=== PATIENT | female | born 1975 | race Caucasian/White ===

== ENCOUNTER 2024-01-02 07:35 | Emergency (ER) | payer BC, SELFPAY ==
[2024-01-02 07:37] VITALS: BP 132/96
--- NOTE | 2024-01-02 08:38 | ED.GENMED ---
History of Present Illness
<KAVITHA Khan - Last Filed: 01/02/24 16:15>
General
Chief Complaint: Musculo-Skeletal Complaint
Source: patient
Exam Limitations: none
Time Seen by Provider: 01/02/24 08:20
Nursing documentation reviewed up to this point in time: agreed with
Travel History
Have you had any contact with someone who has COVID-19?: No
Do you have any symptoms of coronavirus? Fever > 100 degrees, chills, cough, shortness of breath, sore throat, loss of taste or smell, muscle aches, or headache?: No
History of Present Illness
History of Present Illness:
Patient is a 48-year-old female who presents to the ER for evaluation of right clavicle pain. Patient reports for the past several months she has had intense pain and discomfort in her proximal right clavicle region. She reports this is stopping
her from her activities and it is gotten worse over the past several weeks. She reports she feels short of breath because of the pain and it causes her to have to stop. It is worse with physical exertion. She has noticed a fullness in her
clavicle region. She denies any actual injury. She and her are anxious about possible breast cancer because of fullness of the clavicle. She has no history of breast cancer. No family history of breast cancer. She does not smoke.
She had a last mammogram which was normal last summer and is due for one this summer January or February.
Past History
<KAVITHA Khan - Last Filed: 01/02/24 16:15>
Past History
ED Past Medical History: None
ED Past Surgical History: None
Social History
Tobacco: Non-smoker
Alcohol: Occasional
Personal:
Living: with family
Employment: Employed (Teacher)
Review of Systems
<KAVITHA Khan - Last Filed: 01/02/24 16:15>
Review of Systems
Allergies reviewed?: Yes
All Other Systems: ROS reviewed and negative except as documented in HPI and ROS
Constitutional: Reports no symptoms; Denies fever, fatigue or chills
EENT: Reports no symptoms
Respiratory: Reports trouble breathing (trouble with breathing due to clavicle pain )
Cardiac: Reports no symptoms
ABD/GI: Reports no symptoms
Musculoskeletal: Reports other (Pain to proximal right clavicle for past several months.)
Skin: Reports no symptoms
Neurological: Reports no symptoms
Hematologic/Lymphatic: Reports no symptoms
Phy Exam
<KAVITHA Khan - Last Filed: 01/02/24 16:15>
General Physical Exam
General Presentation: no apparent distress
General age: appears stated age
General Skin: warm and dry
General Habitus: normal
General Mental: alert
General Hydration: appears well hydrated
Cardiovascular Exam
Cardiovascular Exam: regular rate/rhythm, no murmur and normal peripheral pulses
Pulmonary Exam
Pulmonary Exam: lungs clear, no respiratory distress and other (Breast exam done by myself with nurse Micaela at bedside no palpable masses to right or left breast )
Neurological Exam
Neurological Exam: alert and oriented x3
Musculoskeletal Exam
Musculoskeletal Exam: other (Patient has tenderness to the proximal right clavicle there is mild fullness above clavicle)
Skin Exam
Skin Exam: normal color and warm/dry
Psychiatric Exam
Psychiatric Exam: normal mood/affect
Course
<KAVITHA Khan - Last Filed: 01/02/24 16:15>
Orders/Labs/Results
Orders:
Orders
01/02/24 07:47
CR Chest - 2 Views Urgent
Comment:
Reason For Exam: clavical pain
01/02/24 08:54
Complete Blood Count/With Diff Urgent
Comprehensive Metabolic Panel Urgent
D-Dimer Urgent
01/02/24 10:00
Venous Doppler Lwr Ext Rt [US Periph Venous LOWER Ext RT] Urgent
Comment:
Reason For Exam: pain
01/02/24 10:25
CT Chest Pe Study Urgent
Comment:
Reason For Exam: sob right sided chest pain
01/02/24 12:05
Electrocardiogram (*1) Stat
Reason for Study: Other
Other Reason for Exam: chest pain
EKG- Treatment ONCE
Abnormal Lab Results
01/02/24
08:54
Chloride 114 H mmol/L
(98-107)
Carbon Dioxide 19 L mmol/L
(22-30)
ALT 53 H U/L
(0-35)
01/02/24 08:54
01/02/24 08:54
Vital Signs
Initial and Last Documented VS:
Initial Vital Signs
Temp Pulse Resp BP Pulse Ox
98.1 F 67 20 132/96 98
01/02/24 07:37 01/02/24 07:37 01/02/24 07:37 01/02/24 07:37 01/02/24 07:37
Last Documented Vital Signs
Temp Pulse Resp BP Pulse Ox
98.1 F 75 15 151/85 100
01/02/24 07:37 01/02/24 10:59 01/02/24 10:59 01/02/24 10:59 01/02/24 10:59
Store Associate consulted with Physician
Store Associate consulted with physician?: Yes
Name of Physician Consulted: Brennen
<Jai Hutton MD - Last Filed: 01/02/24 11:04>
Orders/Labs/Results
Orders:
Orders
01/02/24 07:47
CR Chest - 2 Views Urgent
Comment:
Reason For Exam: clavical pain
01/02/24 08:54
Complete Blood Count/With Diff Urgent
Comprehensive Metabolic Panel Urgent
D-Dimer Urgent
01/02/24 10:00
Venous Doppler Lwr Ext Rt [US Periph Venous LOWER Ext RT] Urgent
Comment:
Reason For Exam: pain
01/02/24 10:25
CT Chest Pe Study Urgent
Comment:
Reason For Exam: sob right sided chest pain
01/02/24 12:05
Electrocardiogram (*1) Stat
Reason for Study: Other
Other Reason for Exam: chest pain
EKG- Treatment ONCE
Abnormal Lab Results
01/02/24
08:54
Chloride 114 H mmol/L
(98-107)
Carbon Dioxide 19 L mmol/L
(22-30)
ALT 53 H U/L
(0-35)
01/02/24 08:54
01/02/24 08:54
Vital Signs
Initial and Last Documented VS:
Initial Vital Signs
Temp Pulse Resp BP Pulse Ox
98.1 F 67 20 132/96 98
01/02/24 07:37 01/02/24 07:37 01/02/24 07:37 01/02/24 07:37 01/02/24 07:37
Last Documented Vital Signs
Temp Pulse Resp BP Pulse Ox
98.1 F 75 15 151/85 100
01/02/24 07:37 01/02/24 10:59 01/02/24 10:59 01/02/24 10:59 01/02/24 10:59
<KAVITHA Khan - Last Filed: 01/02/24 16:15>
MDM/Problems Addressed
Differential Diagnosis Includes:
not limited to: joint pain , possible lymphadenopathy
MDM/Problems Addressed:
Patient is a 48-year-old female who presented to the ER complaining month-long of proximal clavicle pain. She reports because this pain she becomes short of breath. She noticed fullness above her clavicle and was concerned about this especially
possible breast cancer. She is no family history breast cancer she has no history breast cancer she does not smoke cholesterol mammogram was last year she is scheduled for mammogram in February. She has not been evaluated by a physician for this
fullness to the clavicle/pain. She denies any injury. She is in no acute distress. Given the fact that she complains of pain with this discomfort to the right chest clavicle area as reviewed with ED physician CAT scan was done and negative for
PE. CAT scan does however does show sclerotic lesions at levels of T7 and T9 possible bone island benign etiology versus osteoblastic metastasis and bone scan is recommended. On exam she has no obvious palpable masses to breasts. patient was eval
by ED physician she has an appointment with a new HOME BASED ASSISTANT, [facility] but this is not until I believe January I did recommend that she call and try to get a sooner appointment may need other imaging including earlier mammogram/breast
ultrasound. I also spoke with her about follow-up with her family doctor for possible bone scan to further evaluate abnormalities on 279. She was also given orthopedics for possible bony cause of her clavicle pain .
<KAVITHA Khan - Last Filed: 01/02/24 16:15>
*Radiology
Radiology exam reviewed: radiology read reviewed
*Pulse Oximetry
Patient hypoxic: no
*Critical Care Note
Total Time (30-74mins, 75-104mins- exclusive of procedures): Not Applicable
ED Attending Note
<KAVITHA Khan - Last Filed: 01/02/24 16:15>
-
Portions of this chart may have been created with voice recognition software.� Occasional wrong word or��sound alike� substitutions may have occurred due to the inherent limitations of voice recognition software.
<Jai Hutton MD - Last Filed: 01/02/24 11:04>
ED Attending Note
Patient seen and examined by attending physician: Yes
I performed the substantive portion of visit, reviewed & personally made and approve the management plan that is documented in note by myself or FABIO.: Yes
ED Attending Note:
48-year-old female complaining of pain at the right clavicle for months. Also has noted some shortness of breath with this usually felt secondary to pain. No anterior chest pain or pleuritic pain no fever. Symptoms are progressing. She cannot
lie on that side. Patient is healthy exercises no significant cardiac risk factors
On exam patient is nontoxic in no distress. Abdomen nontender no chest wall tenderness. Regular rate and rhythm. She does have mild swelling to the right clavicle medially at the sternoclavicular joint. There is tenderness at this location. She
has no leg pain or leg swelling.
Workup for etiology of local swelling. Workup for shortness of breath. Likely secondary to pain.
Discharge Plan
Departure
Patient Disposition: Home (Routine Discharge)
Date of Disposition: 01/02/24
Time of Disposition: 12:52
Patient with high blood pressure during this ER visit?: Yes
Condition: Fair
Covid-19: Not Applicable
Discharge Problem:
Clavicle pain
Prescriptions:
No Action
topiramate [Trokendi XR] 100 MG capsule,extended release 24hr
100 mg PO DAILY
prednisone 20 MG tablet
20 mg PO DAILY Qty: 5 0RF
albuterol sulfate 1 PUFF HFA aerosol inhaler
2 puff inhalation R Q4HPRN PRN (Reason: Cough, SOB) Qty: 1 0RF
promethazine-codeine 5 ML syrup
5 ml PO Q4HPRN PRN (Reason: Cough) Qty: 120 0RF
Rx Instructions:
May take one to two tsp
Referrals:
Rosa Rodrigez DO [Active] -
Doug Galarza MD [Active] -
Salud Mistry DO [Family Provider] -
Activity Restrictions/Additional Instructions:
As discussed, Call [facility] for an earlier appointment and evaluation of your symptoms as soon as possible. You may possibly need additional imaging including breast ultrasound and earlier mammogram then previously
scheduled
In addition call your family doctor for evaluation of lesions of your thoracic spine on T7 and T9. It is recommended that you do a follow-up bone scan
In addition follow-up with orthopedics for further evaluation of your clavicle pain.
Return if any worsening of symptoms. In the meantime you may try ibuprofen for discomfort every 8 hours.
Interventions
Interventions:
*Risk Screen - Suicide Last Done: 01/02/24 07:37
*General Assessment Last Done: 01/02/24 07:37
*Neglect/Abuse Screening Last Done: 01/02/24 07:37
*Nursing Disposition Last Done: 01/02/24 13:15
ED- Cardiac Assessment Last Done: 01/02/24 09:40
ED-Musculoskeletal Assessment Last Done: 01/02/24 11:00
ED- Pulmonary Assessment Last Done: 01/02/24 09:44
Discharge Date and Time
Discharge Date/Time: 01/02/24 13:15
Print Language: MALAY
[2024-01-02 09:07] LABS: % Basophils 0.6 % (0-2); % Eosinophils 2.9 % (0-6); % Immature Granulocytes 0.3 % (0-0.5); % Lymphocytes 28.3 % (20.5-51.1); % Monocytes 7.2 % (1.7-9.3); % Neutrophils 60.7 % (42.2-75.2); Absolute Eosinophils 0.2 10^3/uL (0-0.7); Absolute Lymphocytes 1.8 10^3/uL (1.2-3.4); Absolute Monocytes 0.5 10^3/uL (0.1-0.6); Absolute Neutrophils 3.8 10^3/uL (1.4-6.5); Hematocrit 38.4 % (37.0-47.0); Hemoglobin 13.2 g/dL (12.0-16.0); Mean Corp Hgb Conc. 34.4 g/dL (33.0-37.0); Mean Corpuscular Hgb 30.2 pg (27.0-31.0); Mean Corpuscular Volume 87.9 fL (81.0-99.0); Mean Platelet Volume 9.9 fL (7.4-10.4); Nucleated Red Blood Cells % 0 %; Platelet Count 218 10^3/uL (130-400); Red Blood Cell Count 4.37 10^6/uL (4.20-5.40); Red Cell Dist. Width 13.3 % (11.5-14.5); White Blood Cell Count 6.3 10^3/uL (4.8-10.8)
[2024-01-02 09:20] LABS: ALT (SGPT) 53 U/L (0-35); AST (SGOT) 32 U/L (14-36); Albumin 3.9 g/dl (3.5-5.0); Alkaline Phosphatase 72 U/L (38-126); Blood Urea Nitrogen 16 mg/dl (7-17); Calcium 9.5 mg/dl (8.4-10.2); Carbon Dioxide 19 mmol/L (22-30); Chloride 114 mmol/L (98-107); D-Dimer 0.37 ug/mlFEU (0.00-0.50); Glucose 89 mg/dl (70-99); Sodium 140 mmol/L (135-145); Total Bilirubin 0.5 mg/dl (0.2-1.3); Total Protein 6.7 g/dl (6.3-8.2); eGFR > 60.00
[2024-01-02 09:44] VITALS: BMI 23.5
[2024-01-02 10:59] VITALS: BP 151/85
== END 2024-01-02 13:15 | disposition home or self-care (01) ==
LOC: EMR 07:35
PROVIDERS: Nurse Practitioner; EMERGENCY PHYSICIAN Emergency Medicine; FAMILY PHYSICIAN Family Medicine
DX: M25.511 Pain in right shoulder (principal); R07.89 Other chest pain; M79.604 Pain in right leg
CPT/HCPCS: 99285; 71046; 71275; 80053; 85025; 85379; 93005; 93971; Q9967

== ENCOUNTER 2024-10-11 08:08 | Emergency (ER) | payer BC, SELFPAY ==
[2024-10-11 08:15] VITALS: BP 135/103
--- NOTE | 2024-10-11 08:25 | ED.GENMED ---
History of Present Illness
General
Chief Complaint: Abdominal Pain
Time Seen by Provider: 10/11/24 08:25
History of Present Illness
History of Present Illness:
TIME OF INITIAL ENCOUNTER: 8:30 AM
HPI: Over 48 hours ago, the patient developed a sensation where she felt that something was stuck in her esophagus. However she had not eaten for several hours prior. Since then she had some difficulty with getting food down and had only been
eating smoothies recently. She is concerned and convinced there is something stuck in her esophagus. However, she has been able to clear her secretions.
EXAM:
GENERAL: Well appearing in no distress
HEENT: Moist oral mucosa
CARDIOVASCULAR: No murmurs, normal heart rate, regular rhythm, No chest wall tenderness
PULMONARY: No respiratory distress, breath sounds are clear and equal
ABDOMEN: Soft with no peritoneal signs, no tenderness, the patient is clearing her secretions, I had the patient drink some sips of water and it seemed to go down without any difficulty
NEUROLOGIC: Excellent strength all extremities, no coordination deficits
PSYCHIATRIC: Appropriate mental status, normal insight and judgement
EXTREMITIES: Nontender, no edema, moves all extremities equally
SKIN: No rash, no lesions
NUMBER AND COMPLEXITY OF PROBLEMS ADDRESSED AT THE ENCOUNTER
� Chronic conditions affecting care: Migraines
� Acute Exacerbation and/or Progression of Chronic Illness: This is an acute problem
� Differential Diagnosis includes: Esophageal food bolus, esophagitis, GERD, esophageal rupture
AMOUNT AND/OR COMPLEXITY OF DATA TO BE REVIEWED AND ANALYZED
� I performed an independent evaluation of and my interpretation is:
EKG:
CT: CT imaging shows no acute abnormality�the patient was aware of the known abnormalities to the bones of the spine
X-rays:
Laboratory Studies: White count and hemoglobin are normal, chemistries relatively unremarkable, hCG negative
Other:
� Review of other/old records: I reviewed old records, no GI notes; she had a CTA less than 1 year ago which was negative for PE
� Clinical information was obtained by an independent historian: I spoke to at bedside
� Prescriptions/Medications Considered but not given:
� Further testing considered but not performed:
RISK OF COMPLICATIONS AND/OR MORBIDITY OR MORTALITY OF PATIENT MANAGEMENT
� Social determinants of health affecting care: Lives at home
� Discussion with other providers: I notified Dr. Tirado who recommends follow-up with her GI doctor at [facility]
� Escalation of care including admission/observation vs risk of discharge considered: is very concerned that she still has something stuck in her esophagus and strongly preferred CT imaging which I feel would be
reasonable. CT shows no sign of foreign body�she was aware of the bony abnormality. She was given 2 rounds of glucagon, Pepcid, Protonix, IV fluids and overall feels improved.
ANY OTHER UPDATES:
Prior to discharge, after meds given, she does feel improved and comfortable going home.
Past History
Past History
ED Past Medical History: None
ED Past Surgical History: None
Social History
Tobacco: Non-smoker
Alcohol: Occasional
Personal:
Living: with family
Employment: Employed (Teacher)
Phy Exam
Physical Exam
Physical Exam:
See HPI
Course
Orders/Labs/Results
Orders:
Orders
10/11/24 08:18
ECG [Electrocardiogram (*1)] Urgent
Reason for Study: Abdominal Pain
EKG- Treatment ONCE
10/11/24 08:33
0.9% Sodium Chloride 1000 ml [Nss] 1,000 ml IV BOLUS
Famotidine [Pepcid] 20 mg IV NOW STA
Glucagon [GlucaGen] 1 mg IV NOW STA
Ondansetron Injectable [Zofran] 4 mg IV NOW STA
Pantoprazole [Protonix IV] 40 mg IV NOW STA
Test Result ONCE
10/11/24 08:50
Complete Blood Count/With Diff Urgent
Comprehensive Metabolic Panel Urgent
HCG, Serum Qualitative Screen Urgent
Lipase Urgent
10/11/24 08:59
CT Chest With Iv Contrast Urgent
Comment:
Reason For Exam: concern for esophageal FB / pain
10/11/24 09:30
Glucagon [GlucaGen] 1 mg IV NOW STA
Abnormal Lab Results
10/11/24
08:50
Total Bilirubin 1.4 H mg/dl
(0.2-1.3)
ALT 58 H U/L
(0-35)
10/11/24 08:50
10/11/24 08:50
Vital Signs
Initial and Last Documented VS:
Initial Vital Signs
Temp Pulse Resp BP Pulse Ox
37.0 C 76 18 135/103 94
10/11/24 08:15 10/11/24 08:15 10/11/24 08:15 10/11/24 08:15 10/11/24 08:15
Last Documented Vital Signs
Temp Pulse Resp BP Pulse Ox
37.0 C 56 15 113/83 97
10/11/24 08:15 10/11/24 11:28 10/11/24 09:00 10/11/24 11:28 10/11/24 11:28
*Critical Care Note
Total Time (30-74mins, 75-104mins- exclusive of procedures): Not Applicable
ED Attending Note
-
Portions of this chart may have been created with voice recognition software.� Occasional wrong word or��sound alike� substitutions may have occurred due to the inherent limitations of voice recognition software.
Discharge Plan
Departure
Patient Disposition: Home (Routine Discharge)
Date of Disposition: 10/11/24
Time of Disposition: 10:18
Patient with high blood pressure during this ER visit?: Yes
Discharge Problem:
Esophagitis
Instructions: Acid Reflux and GERD in Adults (DC), Esophagitis
Prescriptions:
No Action
topiramate [Trokendi XR] 100 MG capsule,extended release 24hr
100 mg PO DAILY
prednisone 20 MG tablet
20 mg PO DAILY Qty: 5 0RF
albuterol sulfate 1 PUFF HFA aerosol inhaler
2 puff inhalation R Q4HPRN PRN (Reason: Cough, SOB) Qty: 1 0RF
promethazine-codeine 5 ML syrup
5 ml PO Q4HPRN PRN (Reason: Cough) Qty: 120 0RF
Rx Instructions:
May take one to two tsp
Referrals:
Pari Tirado MD [Active] - Follow up in 2-3 days
Salud Mistry DO [Family Provider] -
Activity Restrictions/Additional Instructions:
We gave you IV fluids, IV glucagon twice, IV Pepcid, and IV Protonix. Protonix is a medicine similar to omeprazole/Prilosec. I recommend taking [id number] omeprazole and you could also try [id number] Pepcid/famotidine for more
immediate relief this could be stomach acid related. CT imaging shows no acute abnormality including no clear sign of foreign body in the esophagus or stomach. The radiologist did note 'at least 4 sclerotic lesions of the vertebral bodies possibly
benign bone islands, these are stable, these involve C7, T7, T9, and T10. I notified our GI doctor, Dr. Tirado who recommends that you follow-up with your GI doctor at [facility].
Interventions
Interventions:
*Risk Screen - Suicide Last Done: 10/11/24 08:15
*General Assessment Last Done: 10/11/24 08:15
*Neglect/Abuse Screening Last Done: 10/11/24 08:15
*ED COVID-19 Vaccine History Last Done: 10/11/24 10:00
*Nursing Disposition Last Done: 10/11/24 11:28
GS-[facility]inik-Ouaubtjuix Assessment Last Done: 10/11/24 10:00
Discharge Date and Time
Discharge Date/Time: 10/11/24 11:30
Print Language: CONGOLESE
[2024-10-11 08:40] VITALS: BMI 26.5
[2024-10-11] MEDS: NSS 1000 IV (08:46)
[2024-10-11] MEDS: GlucaGen 1 MG IV ×2 (08:47→09:47)
[2024-10-11] MEDS: PROTONIX IV 40 MG IV (08:57)
[2024-10-11 09:00] VITALS: BP 124/88
[2024-10-11] MEDS: PEPCID 20 MG IV (09:02)
[2024-10-11] MEDS: ZOFRAN 4 MG IV (09:02)
[2024-10-11 09:03] LABS: % Basophils 0.5 % (0-2); % Eosinophils 2.4 % (0-6); % Immature Granulocytes 0.2 % (0-0.5); % Monocytes 9.1 % (1.7-9.3); % Neutrophils 50.8 % (42.2-75.2); Absolute Eosinophils 0.1 10^3/uL (0-0.7); Absolute Monocytes 0.5 10^3/uL (0.1-0.6); Absolute Neutrophils 2.8 10^3/uL (1.4-6.5); Hematocrit 43.9 % (37.0-47.0); Hemoglobin 14.9 g/dL (12.0-16.0); Mean Corp Hgb Conc. 33.9 g/dL (33.0-37.0); Mean Corpuscular Hgb 29.5 pg (27.0-31.0); Mean Corpuscular Volume 86.9 fL (81.0-99.0); Nucleated Red Blood Cells % 0 %; Platelet Count 249 10^3/uL (130-400); Red Blood Cell Count 5.05 10^6/uL (4.20-5.40); Red Cell Dist. Width 12.2 % (11.5-14.5); White Blood Cell Count 5.5 10^3/uL (4.8-10.8)
[2024-10-11 09:13] LABS: HCG, Serum Qualitative Screen Negative
[2024-10-11 09:17] LABS: ALT (SGPT) 58 U/L (0-35); AST (SGOT) 27 U/L (14-36); Albumin 4.4 g/dl (3.5-5.0); Alkaline Phosphatase 81 U/L (38-126); Blood Urea Nitrogen 17 mg/dl (7-17); Calcium 9.7 mg/dl (8.4-10.2); Carbon Dioxide 25 mmol/L (22-30); Chloride 105 mmol/L (98-107); Estimated Creatinine Clearance 82 ml/min; Glucose 86 mg/dl (70-99); Lipase 86 U/L (23-300); Potassium 4.3 mmol/L (3.5-5.1); Sodium 138 mmol/L (135-145); Total Bilirubin 1.4 mg/dl (0.2-1.3); Total Protein 7.1 g/dl (6.3-8.2); eGFR > 60.00
[2024-10-11 11:28] VITALS: BP 113/83
== END 2024-10-11 11:30 | disposition home or self-care (01) ==
LOC: EMR 08:08
PROVIDERS: EMERGENCY PHYSICIAN Emergency Medicine; FAMILY PHYSICIAN Family Medicine
DX: K20.90 Esophagitis, unspecified without bleeding (principal)
CPT/HCPCS: 96374; 96375; 96376; 96361; 99284; 71260; 80053; 83690; 84703; 85025; 93005; J1610; Q9967